=== PATIENT | female | born 1985 | race Caucasian/White ===

== ENCOUNTER 2017-11-12 11:50 | Emergency (ER) | payer SELFPAY ==
[2017-11-12] MEDS ORDERED: Ketorolac Tromethamine 60 MG/2 ML VIAL ONE (12:08)
[2017-11-12] MEDS ORDERED: Ondansetron ODT 8 MG TAB ONE (12:08)
--- NOTE | 2017-11-12 13:06 | RAD ---
THREE VIEWS OF THE RIGHT SHOULDER: COMPARISON: None. HISTORY: Right shoulder pain and pain in the clavicle. FINDINGS: Three views of the right shoulder show no evidence of acute fracture or dislocation. There is a plat e and screws in the clavicle without perihardware lucency. No degenerative changes were seen. The v isualized right thorax is unremarkable. IMPRESSION: No evidence of acute osseous abnormality. POS: [facility]
== END 2017-11-12 13:15 | disposition home or self-care (01) ==
LOC: ERS 11:50
DX: S46.911A Strain of unspecified muscle, fascia and tendon at shoulder and upper arm level, right arm, initial encounter (principal); J45.909 Unspecified asthma, uncomplicated; X50.1XXA Overexertion from prolonged static or awkward postures, initial encounter
CPT/HCPCS: 96372; J1885

== ENCOUNTER 2019-09-12 13:31 | Emergency (ER) | payer SELFPAY | END 2019-09-12 13:58 | disposition home or self-care (01) | LOC: ERS 13:31 | DX: K59.00 Constipation, unspecified (principal); K64.9 Unspecified hemorrhoids; J45.909 Unspecified asthma, uncomplicated; F32.9 Major depressive disorder, single episode, unspecified | CPT/HCPCS: 99283 ==

== ENCOUNTER 2019-09-20 20:55 | Emergency (ER) | payer SELFPAY ==
[2019-09-20] MEDS ORDERED: Ketorolac Tromethamine 30 MG/ML VIAL ONE (21:26)
--- NOTE | 2019-09-20 21:50 | RAD ---
LEFT WRIST RADIOGRAPH THREE VIEWS: 09/20/19 PROVIDED CLINICAL HISTORY: Fall with pain. FINDINGS: Postoperative changes of volar plate and screw fixation demonstrated without evidence for hardware lo osening or migration. No evidence for acute fracture. Alignment appears anatomic. Joint spaces appear preserved. IMPRESSION: No evidence for an acute osseous abnormality. If there is persistent clinical concern, conservative management and follow-up imaging are advised. POS: [facility]
== END 2019-09-20 22:07 | disposition home or self-care (01) ==
LOC: ERS 20:55
DX: M25.532 Pain in left wrist (principal); F32.9 Major depressive disorder, single episode, unspecified; F60.3 Borderline personality disorder; J45.909 Unspecified asthma, uncomplicated; Z79.899 Other long term (current) drug therapy; W19.XXXA Unspecified fall, initial encounter
CPT/HCPCS: 96372; J1885

== ENCOUNTER 2019-10-12 13:27 | Emergency (ER) | payer SELFPAY ==
[2019-10-12] MEDS ORDERED: Ibuprofen 200 MG TAB ONE (14:06)
== END 2019-10-12 14:48 | disposition home or self-care (01) ==
LOC: ERS 13:27
DX: B34.9 Viral infection, unspecified (principal); F32.9 Major depressive disorder, single episode, unspecified; F43.10 Post-traumatic stress disorder, unspecified; F60.3 Borderline personality disorder; J45.909 Unspecified asthma, uncomplicated; Z79.899 Other long term (current) drug therapy
CPT/HCPCS: 87081; 87430; 87804; 99283

== ENCOUNTER 2019-11-18 22:20 | Emergency (ER) | payer SELFPAY | END 2019-11-18 23:05 | disposition home or self-care (01) | LOC: ERS 22:20 | DX: F32.9 Major depressive disorder, single episode, unspecified (principal); J45.909 Unspecified asthma, uncomplicated; F43.10 Post-traumatic stress disorder, unspecified; F60.3 Borderline personality disorder; Z79.899 Other long term (current) drug therapy | CPT/HCPCS: 99283 ==